=== PATIENT | male | born 1990 | race Two or more races ===

== ENCOUNTER 2018-05-07 11:14 | Emergency (ER) | payer OTHER ==
[~2018-05-07] VITALS: Ht 162.6 cm; Wt 65.8 kg
[2018-05-07 11:22] VITALS: BP 154/91
--- NOTE | 2018-05-07 12:49 | NUR ---
Patient discharged to home in stable condition. Written and verbal after care instructions given. Patient verbalizes understanding of instruction.
== END 2018-05-07 12:50 | disposition home or self-care (01) ==
LOC: ER 11:19
DX: S22.32XA Fracture of one rib, left side, initial encounter for closed fracture (principal); V47.5XXA Car driver injured in collision with fixed or stationary object in traffic accident, initial encounter; Y93.89 Activity, other specified; Y92.413 State road as the place of occurrence of the external cause; Y99.8 Other external cause status
CPT/HCPCS: 71100; 99283; A4606; Z7610